=== PATIENT | male | born 2000 | race Caucasian/White ===

== ENCOUNTER 2022-03-01 12:53 | Inpatient (IN) | payer MEDICAID, OTHER ==
[~2022-03-01] VITALS: Ht 172.7 cm; Wt 78.7 kg
[2022-03-01 15:31] LABS: COVID AG,FIA SOURCE NASOPHARYNGEAL
[2022-03-01 15:46] LABS: BASOPHILS % (AUTO) 0.1 % (0.0-2.0); EOSINOPHILS % (AUTO) 0 % (1.0-6.0); HEMATOCRIT 48.2 % (41-53); HEMOGLOBIN 16.4 g/dL (13.5-17.5); LYMPHOCYTES # (AUTO) 1.2 K/uL (1.0-4.8); LYMPHOCYTES % (AUTO) 10.8 % (22.0-44.0); MEAN CORPUSCULAR HEMOGLOBIN 31.8 pg (26.0-34.0); MEAN CORPUSCULAR VOLUME 93 fL (80-100); MONOCYTES # (AUTO) 0.8 K/uL (0.1-1.0); MONOCYTES % (AUTO) 7.4 % (2.0-9.0); NEUTROPHILS # (AUTO) 8.8 K/uL (1.8-7.7); NEUTROPHILS % (AUTO) 81.7 % (40.0-70.0); PLATELET COUNT (AUTO) 493 K/uL (150-450); RED BLOOD CELL COUNT(AUTO) 5.16 MIL/uL (4.50-5.90); RED CELL DISTRIBUTION WIDTH 13.5 % (11.5-14.5)
[2022-03-01 16:03] LABS: ANION GAP 19 mmol/L (8-16); CALCIUM, TOTAL 10.3 mg/dL (8.8-10.5); CARBON DIOXIDE 20 mmol/L (22-29); CHLORIDE 100 mmol/L (98-107); CREATININE 0.74 mg/dL (0.60-1.30); GLOMERULAR FILTR. RATE CALC > 60 mL/min (>60); GLUCOSE,RANDOM 91 mg/dL (70-110); POTASSIUM 4.3 mmol/L (3.5-5.1); SODIUM SERUM 139 mmol/L (136-145); UREA NITROGEN, BLOOD 10 mg/dL (7-18)
[2022-03-01 16:09] LABS: ALANINE AMINOTRANSFERASE 17 U/L (12-78); ALBUMIN 5.1 g/dL (3.4-5.0); ALKALINE PHOSPHATASE 75 U/L (46-116); ASPARTATE AMINOTRANSFERASE 17 U/L (15-37); BILIRUBIN,TOTAL 0.9 mg/dL (0.1-1.0); TOTAL PROTEIN, SERUM 9.2 g/dL (6.4-8.2)
[2022-03-01 17:01] LABS: APPEARANCE,URINE CLEAR (CLEAR); BILIRUBIN,URINE NEGATIVE (NEGATIVE); GLUCOSE, URINE (UA) NEGATIVE (NEGATIVE); KETONES,URINE =>150 mg/dL (NEGATIVE); LEUKOCYTE ESTERASE ,URINE NEGATIVE (NEGATIVE); NITRATE,URINE NEGATIVE (NEGATIVE); OCCULT BLOOD,URINE NEGATIVE (NEGATIVE); PH,URINE 5.5 (5.0-8.0); PROTEIN,URINE 30-70 mg/dL (NEGATIVE); SPECIFIC GRAVITIY, URINE 1.026 (1.003-1.030); UROBILINOGEN,URINE <=1.0 mg/dL (<=1.0)
[2022-03-01 17:06] LABS: AMPHET/METH SCREEN,URINE NEGATIVE (NEGATIVE); BARBITURATE SCREEN, URINE NEGATIVE (NEGATIVE); BENZODIAZEPINES SCREEN,URINE NEGATIVE (NEGATIVE); CANNABINOID SCREEN,URINE POSITIVE (NEGATIVE); COCAINE SCREEN,URINE NEGATIVE (NEGATIVE); METHADONE SCREEN, URINE NEGATIVE (NEGATIVE); OPIATE SCREEN,URINE NEGATIVE (NEGATIVE); PHENCYCLIDINE SCREEN,URINE NEGATIVE (NEGATIVE)
[2022-03-01 18:24] VITALS: BP 167/95
[2022-03-01] MEDS: LORazepam 2 MG TABLET PO PRN (18:30)
[2022-03-01] MEDS: OLANZapine 5 MG RAPDIS TABLET PO PRN (18:30)
[2022-03-01] MEDS ORDERED: NICOTINE 14 MG/24 HOUR PATCH TD PRN (19:00)
[2022-03-02 16:07] VITALS: BP 115/81
[2022-03-02] MEDS ORDERED: ACETAMINOPHEN 325 MG TABLET PO PRN (16:45)
[2022-03-02] MEDS ORDERED: MAGNESIUM HYDROXIDE SUSPENSION 30 ML UDCUP PO PRN (16:45)
[2022-03-02] MEDS ORDERED: TUBERCULIN, PURIFIED PROTEIN DERIVATIVE 5 TU/0.1 ML SYRINGE ID ONE (16:45)
[2022-03-02] MEDS ORDERED: PROMETHAZINE HCL 25 MG TABLET PO PRN (16:45)
[2022-03-02] MEDS ORDERED: MAG HYDROX/AL HYDROX/SIMETH ES 30 ML SUSPENSION UDCUP PO PRN (16:45)
[2022-03-02] MEDS ORDERED: LOPERAMIDE HCL 2 MG CAPSULE PO PRN (16:45)
[2022-03-02] MEDS ORDERED: HydrOXYzine PAMOATE 50 MG CAPSULE PO PRN (16:45)
[2022-03-02] MEDS ORDERED: GuaiFENesin/D-METHORPHAN [SUGAR-FREE] 200-20MG/10 ML SYRUP UDCUP PO PRN (16:45)
[2022-03-02] MEDS: THIAMINE 100 MG TABLET PO SCH (17:13)
[2022-03-02] MEDS: DEXTROMETHORPHAN HBR/QUINIDINE 20/10 MG CAPSULE PO SCH (21:08)
[2022-03-02] MEDS: MELATONIN 5 MG TABLET PO SCH (21:08)
[2022-03-03] MEDS: LORazepam 2 MG TABLET PO PRN ×2 (03:21→10:12)
[2022-03-03] MEDS: FLUoxetine HCL 20 MG CAPSULE PO SCH (10:09)
[2022-03-03] MEDS: MULTIVITAMINS WITH MINERALS, THERAPEUTIC TABLET PO SCH (10:09)
[2022-03-03] MEDS: OMEGA-3/DHA/EPA/FISH OIL 1,000 MG CAPSULE PO SCH (10:10)
[2022-03-03] MEDS: THIAMINE 100 MG TABLET PO SCH ×2 (10:10→17:20)
[2022-03-03] MEDS: FOLIC ACID 1 MG TABLET PO SCH (10:10)
[2022-03-03] MEDS: NALTREXONE HCL 50 MG TABLET PO SCH (10:10)
[2022-03-03] MEDS: OLANZapine 5 MG RAPDIS TABLET PO PRN (10:12)
[2022-03-03 10:23] LABS: HEMOGLOBIN A1C 4.9 % (3.8-5.6)
[2022-03-03 10:29] LABS: CHOL/HDL RATIO 2.9 (4.2-7.3); FREE T4 (FREE THYROXINE) 1.42 ng/dL (0.76-1.46); THYROID STIMULATING HORMONE 1.15 uIU/mL (0.36-3.74)
[2022-03-03 12:48] VITALS: BP 139/103
[2022-03-03 16:00] VITALS: BP 153/71
[2022-03-03] MEDS ORDERED: OLANZapine 5 MG RAPDIS TABLET PO PRN (17:00)
[2022-03-03] MEDS: DEXTROMETHORPHAN HBR/QUINIDINE 20/10 MG CAPSULE PO SCH (20:55)
[2022-03-03] MEDS: MELATONIN 5 MG TABLET PO SCH (20:55)
[2022-03-03] MEDS ORDERED: OLANZapine 5 MG RAPDIS TABLET PO SCH (21:00)
[2022-03-04] MEDS: NALTREXONE HCL 50 MG TABLET PO SCH (08:17)
[2022-03-04] MEDS: FOLIC ACID 1 MG TABLET PO SCH (08:17)
[2022-03-04] MEDS: MULTIVITAMINS WITH MINERALS, THERAPEUTIC TABLET PO SCH (08:17)
[2022-03-04] MEDS: THIAMINE 100 MG TABLET PO SCH ×2 (08:17→16:07)
[2022-03-04] MEDS: OMEGA-3/DHA/EPA/FISH OIL 1,000 MG CAPSULE PO SCH (08:17)
[2022-03-04] MEDS: FLUoxetine HCL 20 MG CAPSULE PO SCH (08:17)
[2022-03-04 09:40] VITALS: BP 135/78
[2022-03-04 16:00] VITALS: BP 138/82
[2022-03-04] MEDS: MELATONIN 5 MG TABLET PO SCH (20:21)
[2022-03-04] MEDS: DEXTROMETHORPHAN HBR/QUINIDINE 20/10 MG CAPSULE PO SCH (20:21)
[2022-03-04] MEDS: OLANZapine 10 MG RAPDIS TABLET PO SCH (20:22)
[2022-03-05] MEDS: NALTREXONE HCL 50 MG TABLET PO SCH (07:59)
[2022-03-05] MEDS: OMEGA-3/DHA/EPA/FISH OIL 1,000 MG CAPSULE PO SCH (08:01)
[2022-03-05] MEDS: FOLIC ACID 1 MG TABLET PO SCH (08:02)
[2022-03-05] MEDS: MULTIVITAMINS WITH MINERALS, THERAPEUTIC TABLET PO SCH (08:02)
[2022-03-05] MEDS: FLUoxetine HCL 20 MG CAPSULE PO SCH (08:02)
[2022-03-05] MEDS: THIAMINE 100 MG TABLET PO SCH ×2 (08:02→16:23)
[2022-03-05 10:35] VITALS: BP 131/72
[2022-03-05 16:19] VITALS: BP 156/76
[2022-03-05] MEDS: MELATONIN 5 MG TABLET PO SCH (21:01)
[2022-03-05] MEDS: DEXTROMETHORPHAN HBR/QUINIDINE 20/10 MG CAPSULE PO SCH (21:01)
[2022-03-05] MEDS: OLANZapine 10 MG RAPDIS TABLET PO SCH (21:02)
[2022-03-06] MEDS: OMEGA-3/DHA/EPA/FISH OIL 1,000 MG CAPSULE PO SCH (08:21)
[2022-03-06] MEDS: MULTIVITAMINS WITH MINERALS, THERAPEUTIC TABLET PO SCH (08:21)
[2022-03-06] MEDS: NALTREXONE HCL 50 MG TABLET PO SCH (08:22)
[2022-03-06] MEDS: FLUoxetine HCL 20 MG CAPSULE PO SCH (08:22)
[2022-03-06] MEDS: THIAMINE 100 MG TABLET PO SCH ×2 (08:22→16:10)
[2022-03-06] MEDS: FOLIC ACID 1 MG TABLET PO SCH (08:22)
[2022-03-06 08:40] VITALS: BP 137/72
[2022-03-06 16:40] VITALS: BP 128/70
[2022-03-06] MEDS: DEXTROMETHORPHAN HBR/QUINIDINE 20/10 MG CAPSULE PO SCH (20:30)
[2022-03-06] MEDS: MELATONIN 5 MG TABLET PO SCH (20:30)
[2022-03-06] MEDS: OLANZapine 10 MG RAPDIS TABLET PO SCH (20:31)
[2022-03-06] MEDS: ZOLPIDEM TARTRATE 10 MG TABLET PO PRN (21:51)
[2022-03-06] MEDS: LORazepam 2 MG TABLET PO PRN (23:09)
[2022-03-07 08:00] VITALS: BP 148/81
[2022-03-07] MEDS: LORazepam 2 MG TABLET PO PRN (08:16)
[2022-03-07] MEDS: FLUoxetine HCL 20 MG CAPSULE PO SCH (08:16)
[2022-03-07] MEDS: FOLIC ACID 1 MG TABLET PO SCH (08:16)
[2022-03-07] MEDS: THIAMINE 100 MG TABLET PO SCH ×2 (08:16→17:15)
[2022-03-07] MEDS: NALTREXONE HCL 50 MG TABLET PO SCH (08:17)
[2022-03-07] MEDS: OMEGA-3/DHA/EPA/FISH OIL 1,000 MG CAPSULE PO SCH (08:17)
[2022-03-07] MEDS: MULTIVITAMINS WITH MINERALS, THERAPEUTIC TABLET PO SCH (08:17)
[2022-03-07 16:00] VITALS: BP 144/86
[2022-03-07] MEDS: MELATONIN 5 MG TABLET PO SCH (20:00)
[2022-03-07] MEDS: OLANZapine 10 MG RAPDIS TABLET PO SCH (20:00)
[2022-03-07] MEDS: DEXTROMETHORPHAN HBR/QUINIDINE 20/10 MG CAPSULE PO SCH (20:00)
[2022-03-07] MEDS: ZOLPIDEM TARTRATE 10 MG TABLET PO PRN (20:00)
[2022-03-08] MEDS: FLUoxetine HCL 20 MG CAPSULE PO SCH (08:09)
[2022-03-08] MEDS: LORazepam 2 MG TABLET PO PRN (08:09)
[2022-03-08] MEDS: OMEGA-3/DHA/EPA/FISH OIL 1,000 MG CAPSULE PO SCH (08:09)
[2022-03-08] MEDS: FOLIC ACID 1 MG TABLET PO SCH (08:09)
[2022-03-08] MEDS: THIAMINE 100 MG TABLET PO SCH ×2 (08:09→17:27)
[2022-03-08] MEDS: MULTIVITAMINS WITH MINERALS, THERAPEUTIC TABLET PO SCH (08:09)
[2022-03-08] MEDS: NALTREXONE HCL 50 MG TABLET PO SCH (08:10)
[2022-03-08 08:56] VITALS: BP 154/84
[2022-03-08 16:19] VITALS: BP 137/81
[2022-03-08] MEDS ORDERED: OLAN10TA26 PO (17:20)
[2022-03-08] MEDS ORDERED: MELA5TAB40 PO (17:20)
[2022-03-08] MEDS ORDERED: NALT50TA PO (17:20)
[2022-03-08] MEDS ORDERED: PROZ20 PO (17:20)
== END 2022-03-08 18:35 | disposition home or self-care (01) | DRG 750 ==
LOC: EMS 12:53 → 3EC 17:51
PROVIDERS: ADMIT Psychiatry & Neurology Psychiatry; ATTEND Psychiatry & Neurology Psychiatry
DX: F25.1 Schizoaffective disorder, depressive type (principal); R45.851 Suicidal ideations; Z20.822 Contact with and (suspected) exposure to COVID-19; G47.00 Insomnia, unspecified; F12.20 Cannabis dependence, uncomplicated
CPT/HCPCS: 80053; 80061; 81003; 83036; 84439; 84443; 85025; 86592; 97112; 97116; 97530; 99285; G0480; Q9967